=== PATIENT | male | born 1950 | race Caucasian/White ===

== ENCOUNTER → 2018-01-19 | Outpatient (CLI) | payer OTHER, BC ==
[~2018-01-19] VITALS: Ht 182.9 cm; Wt 104.3 kg
[~2018-01-19] MED LIST: ASCORBIC ACID500 M3 PO; BREWER'S YEAST500 MG PO; FISH OIL 500 M1 EAC3 PO; MOVE FREE JOIN1 EACH PO; [UNRECOGNIZED DRUG - OTHER] PO
== END | disposition home or self-care (01) ==
LOC: AMB 09:29
DX: Z12.11 Encounter for screening for malignant neoplasm of colon (principal); D12.3 Benign neoplasm of transverse colon; K63.5 Polyp of colon; K57.30 Diverticulosis of large intestine without perforation or abscess without bleeding; K64.8 Other hemorrhoids; E78.5 Hyperlipidemia, unspecified; J30.9 Allergic rhinitis, unspecified; Z82.49 Family history of ischemic heart disease and other diseases of the circulatory system; Z82.3 Family history of stroke
CPT/HCPCS: 88305; J2250